=== PATIENT | female | born 1955 | race Caucasian/White ===

== ENCOUNTER 2023-05-27 13:22 | Outpatient (OUT) | payer MEDICARE, SELFPAY ==
--- NOTE | 2023-05-27 | XR_ITS ---
The [address] [address] Patient Name: AZEEM POST MRN: [id number] date: 1955 Sex: F Assigned Patient Location: [facility] Current Patient Location: [facility] Accession/Order Number: [id number] Exam Date: 05/27/2023 13:50 Report Date: 05/27/2023 14:31 At the request of: JO LEGER Procedure: XR foot LT min 3V PROCEDURE: XR foot LT min 3V COMPARISON: None. HISTORY: LEFT FOOT PAIN FINDINGS: BONES:No acute fracture or dislocation. Valgus of the fifth metatarsal phalangeal joint. Mild enthesopathic spurring Achilles insertion of the calcaneus SOFT TISSUES:Negative. No visible soft tissue swelling. EFFUSION:None visible. OTHER: Negative. XR/XR foot LT min 3V IMPRESSION: Mild degenerative changes Electronically authenticated by: ESTEBAN RINALDI Date: 05/27/2023 14:31
== END 2023-05-27 13:23 | disposition home or self-care (01) ==
LOC: RAD 13:26
PROVIDERS: Visit Provider Podiatrist Foot & Ankle Surgery
DX: M79.672 Pain in left foot (principal)
CPT/HCPCS: 73630